=== PATIENT | female | born 1970 | race Caucasian/White ===

== ENCOUNTER 2017-11-17 05:59 | Inpatient (IN) | payer OTHER ==
[~2017-11-17 05:59] MED LIST: Buffered Lidocaine 0.9% SYRIN* 5 ML/SYR SYRINGE INTRADERM ONE
[2017-11-17] MEDS ORDERED: Famotidine IV* 10 MG/ML 2 ML (20 mg) IV ONE (06:00)
[2017-11-17] MEDS ORDERED: Dexamethasone IV* 4 MG/ML 1 ML (4 MG) IV SLOW PU ONE (06:00)
[2017-11-17] MEDS ORDERED: Heparin VIAL(*) 5000 UNITS/ML VIAL (FIVE THOUSAND) ONE (06:06)
[2017-11-17] MEDS ORDERED: Famotidine IV* 10 MG/ML 2 ML (20 mg) ONE (06:06)
[2017-11-17] MEDS ORDERED: Dexamethasone IV* 4 MG/ML 1 ML (4 MG) ONE (06:06)
[2017-11-17] MEDS ORDERED: ceFAZolin 1 GM in Dextrose (*) 1 GM/50 ML BAG IVPB ONE (06:06)
[2017-11-17] MEDS ORDERED: ceFAZolin 2 GM PREMIX (*) 2 GM/50 ML BAG IVPB ONE (06:06)
[2017-11-17] MEDS ORDERED: Midazolam* 1 MG/ML 2 ML VIAL (2 MG) ONE (06:38)
[2017-11-17] MEDS ORDERED: fentaNYL* 50 MCG/ML 5 ML VIAL (250 MCG VIAL) ONE ×2 (06:38→10:38)
[2017-11-17] MEDS ORDERED: Rocuronium* 10 MG/ML VIAL ONE (06:39)
[2017-11-17] MEDS ORDERED: Lidocaine 2% PF * 5 ML VIAL ONE (06:40)
[2017-11-17] MEDS ORDERED: Propofol* 10 MG/ML 20 ML BTL IV PUSH ONE (06:40)
[2017-11-17] MEDS ORDERED: Bupivacaine 0.25% W/EPI* 10 ML SDV ONE (07:04)
[2017-11-17] MEDS ORDERED: Clindamycin 900 MG IVPREMIX(* 900 MG/50 ML SDV IV ONE (07:30)
[2017-11-17] MEDS ORDERED: Naloxone* 0.4 MG/ML 1 ML VIAL IV PRN (08:15)
[2017-11-17] MEDS ORDERED: DiMENhydriNATE IV* 50 MG/ML VIAL IV PUSH PRN (08:15)
[2017-11-17] MEDS ORDERED: fentaNYL* 50 MCG/ML 2 ML VIAL (100 MCG VIAL) IV PRN (08:15)
[2017-11-17] MEDS ORDERED: Acetaminophen IV 1GM/100ML * 1,000 MG/100 ML VIAL IVPB ONE (08:15)
[2017-11-17] MEDS ORDERED: PROCHLORPERAZINE INJ 5 MG/ML 2 ML VIAL ONE (08:18)
[2017-11-17] MEDS ORDERED: EPHEDrine (Pressors)* 50 MG/ML VIAL ONE (08:20)
[2017-11-17] MEDS ORDERED: Succinylcholine* 20 MG/ML 10 ML VIAL ONE (08:38)
[2017-11-17] MEDS ORDERED: Glycopyrrolate IV* 0.2 MG/ML 1 ML VIAL ONE (09:05)
[2017-11-17] MEDS ORDERED: Neostigmine Methylsulfate* 1 MG/ML 10 ML VIAL (1 mg/ml) ONE (09:05)
[2017-11-17] MEDS ORDERED: Ondansetron INJ* 2 MG/ML VIAL IV PRN (10:05)
[2017-11-17] MEDS ORDERED: HYDROcodone/ACET. 7.5/325 LIQ* 15 ML UDC PO PRN (10:05)
[2017-11-17] MEDS ORDERED: HYDROmorphone INJ* 2 MG/ML CARPUJECT SYRINGE IV PRN (10:05)
--- NOTE | 2017-11-17 10:05 | BRIEFOPN ---
Brief Operative Note - Surgery Procedures: Procedures Pre-OP Diagnoses: Clinically severe obesity Post-op Diagnosis: same Procedure: Laparoscopic sleeve gastrectomy Surgeon: Yodit Asst: Ben Anethesia: GETA EBL: 50cc IVF: 1500cc LR Specimen: portion of stomach Drains: none
[2017-11-17] MEDS ORDERED: Albuterol HFA INHALER* 8 gm MDI INH PRN (10:08)
[2017-11-17] MEDS ORDERED: Dextrose 50% Syringe 50 ML* 25 GM/50 ML SYRINGE IV PUSH PRN (10:25)
[2017-11-17] MEDS ORDERED: diPHENhydraMINE IV* 50 MG/ML 1 ml VIAL (BENADRYL) ONE (10:38)
[2017-11-17] MEDS ORDERED: HYDROmorphone INJ* 0.5 MG/0.5 ML SYRINGE ONE (11:41)
[2017-11-17] MEDS ORDERED: HYDROcodone/ACET. 7.5/325 LIQ* 15 ML UDC ONE (11:42)
[2017-11-17] MEDS ORDERED: Morphine INJ* 2 MG/ML 1 ML SYRINGE (TWO MG - NEW SYRINGE VERSION) IV PRN (12:29)
[2017-11-17] MEDS ORDERED: HYDROmorphone INJ* 0.5 MG/0.5 ML SYRINGE IV PRN (12:34)
[2017-11-17] MEDS: Insulin LISPRO* 1 UNITS UNIT SUBCUT SCH ×2 (13:11→18:16)
[2017-11-17] MEDS: Ketorolac INJ* 30 MG/ML 1 ML VIAL IV PRN (17:16)
[2017-11-17] MEDS: Famotidine IV* 10 MG/ML 2 ML (20 mg) IV SLOW PU SCH (21:41)
[2017-11-18] MEDS: Insulin LISPRO* 1 UNITS UNIT SUBCUT SCH ×4 (00:43→17:50)
[2017-11-18] MEDS: Ketorolac INJ* 30 MG/ML 1 ML VIAL IV PRN ×4 (01:00→19:58)
--- NOTE | 2017-11-18 02:08 | OP ---
CC: Dr. Sae Triplett; [facility] * DATE OF OPERATION: 11/17/17 - ROOM #351 DATE OF : 70. SURGEON: Victor Hugo Monsivais M.D. SENIOR RESIDENT CARE DIRECTOR: ANDRAE Chambers. ANESTHESIOLOGIST: Dr. Rip Benitez. ANESTHESIA: General anesthesia. PRE-OP DIAGNOSES: 1. Clinically severe obesity. 2. Obstructive sleep apnea. 3. Impaired fasting glycemia. 4. Gastroesophageal reflux. 5. Hyperlipidemia. POST-OP DIAGNOSES: 1. Clinically severe obesity. 2. Obstructive sleep apnea. 3. Impaired fasting glycemia. 4. Gastroesophageal reflux. 5. Hyperlipidemia. OPERATIVE PROCEDURE: Laparoscopic sleeve gastrectomy. ESTIMATED BLOOD LOSS: 50 mL. SPECIMEN: Portion of stomach. IV FLUIDS: 1500 mL of crystalloid fluid given. DRAINS: None. INDICATIONS: Ms. Mars was identified in the preoperative area. She was marked and case was discussed with her again and a consent signed. DESCRIPTION OF PROCEDURE: She was taken to the operating room, placed on the operating table in supine position. Preoperative antibiotics were given. Sequential devices were placed on bilateral lower extremities. General anesthesia was induced. The patient's abdomen was prepped and draped in standard surgical fashion. A time-out was performed. The folds of the umbilicus were elevated anteriorly and a Veress needle inserted into the abdominal cavity, which was then allowed it to be insufflated to a pressure of 15 mmHg. The patient tolerated the insufflation well. [place] between the xiphoid and umbilicus, a 12-mm trocar was just inserted left of midline. Laparoscope was inserted through this and there was no evidence of injury from the trocar insertion or from the Veress needle, which was then removed. Additional trocars were then placed in the following positions: A 12-mm in the right upper quadrant and two 5-mm in the left upper quadrant. Review of the abdomen showed a large floppy liver extending over the spleen. This appeared intact with mild cystic structures. It did not appear metastatic. Next, the patient was placed in a steep reverse Trendelenburg. A Rudolph retractor was inserted through a subxiphoid incision and the liver was retracted anteriorly to the right. This exposed the gastroesophageal fat pad. This was grasped and retracted to the right lower quadrant. Blunt dissection along with sharp dissection was carried out to expose the left crura. Next, a retrogastric tunnel was made along the greater curvature, 6 cm from the pylorus. We utilized the ligature to take the vasculature of the greater curvature, took posterior attachments in a similar fashion and took this right up to the angle of His. We were able to fully rotate the stomach along its axis. There was no hiatal hernia. Next, the sleeve stomach was fashioned using a 60-mm purple SHAE stapling device with reinforcement strips placing it from the area of the greater curvature closest to the pylorus and extending it through the incisura. A 40-Jordanian bougie had been placed into the distal stomach before firing the stapler. An additional 60 mm stapling device was fired staying close to the bougie until the sleeve stomach was completed. Bougie was then removed without incident. The stomach was placed in an endoscopic retrieval bag and placed at the right upper quadrant. On the last firing prior to firing the stapler, the tip of the stapler did extend into the liver and caused some bleeding. This was minimal and controlled with electrocautery. We did hold pressure for sometime and placed a Surgicel at the site. Hemostasis was excellent and reviewed the staple line showed that the staple line started off more anterior before it became more lateral, but did not show any full corkscrew when the bougie was removed, it did flatten out somewhat better. Next, the stomach in its endoscopic retrieval bag was brought out through the right upper quadrant port site. We did not dilate this port and we brought it out and did enter into the stomach as we removed this in its entirety. We did notice upon the full removal that a temperature probe tubing was in the specimen. This did have staple along one of the mid staplers and transected it. I reviewed this on the back table and it seemed to be at the midportion of the sleeve stomach. Next, we entered back into the abdomen and re-insufflated. We placed Rudolph retractor back into an appropriate position to review the sleeve stomach. Hemostasis was achieved at the small blunt injury at the superior aspect of the left lateral lobe. Next, we identified the portion where the tubing was cut. We then placed stay sutures distal and proximal to this and with scissors we were able to cut the staple line and Bovie over the stomach staying tight to the staple line, so it is not too narrow or planned sleeve stomach. The tubing was then brought in through the opening. It was cut and the anesthesiologist was then able to remove it in its entirety and I removed this tip of portion through a trocar and being careful not to engage with the skin. Next, a 60-mm black load staple with reinforcement strips were utilized. We needed to upsize the midline trocar to a 15. We then placed a silk suture to reapproximate at the side of the opening in the staple line where the tubing was removed with opening laterally. We were able to place the staple line of the black load stapler through the staple line and recreated more narrower, but minimally narrower sleeve stomach. The posterior and anterior portion of the sleeve stomach at the staple line appeared intact. I did not see any injuries. The staple line did ooze and this was controlled with clip work distributor along the much of the staple line. We irrigated and suctioned out the effluent, appeared to be no injury into the stomach. The bleeding was controlled once hemostasis was obtained. The Rudolph retractor was removed and the liver flap back down on the top of the sleeve stomach. Again, it did show more anterior disposition at the distal portion of the stomach staple line and then it extended laterally through the body and fundus. We did place a portion of the Surgicel along the last staple line and then before the abdomen collapse, we closed the 15 mm trocar site at the mid abdomen with an 0 Polysorb suture using Endo-Close device. The abdomen was allowed to collapse. Trocars were removed under direct vision and all skin incisions were reapproximated with 4-0 Monocryl subcuticular sutures followed by Steri-Strips and sterile dressing. The patient tolerated the procedure well , and was transferred to the PACU in stable condition and extubated. [id number]/[facility] #: [id number] [facility]ITAL[facility]
[2017-11-18 05:57] LABS: ABS Basophils 0 10^3/ul (0-0.2); ABS Eosinophils 0.1 10^3/ul (0-0.6); ABS Lymphocytes 0.5 10^3/ul (1.0-4.8); ABS Monocytes 0.6 10^3/ul (0-0.8); ABS Neutrophils 5.1 10^3/ul (1.5-7.7); ABS Nucleated RBC 0 10^3/ul; Eosinophil % 1.5 % (0-6); Hematocrit 34 % (35-47); Hemoglobin 11.9 g/dl (12.0-16.0); Lymphocyte % 8.4 % (25-47); Mean Corpuscular HGB Conc 35 g/dl (31-36); Mean Corpuscular Hemoglobin 31 pg (27-31); Mean Corpuscular Volume 88 fL (80-97); Mean Platelet Volume 7.5 um3 (7.4-10.4); Nucleated Red Blood Cells % 0.1; Platelet Count 173 10^3/ul (150-450); Red Blood Count 3.84 10^6/ul (4.00-5.40); Red Cell Distribution Width 15 % (10.5-15); White Blood Count 6.4 10^3/ul (3.5-10.8)
[2017-11-18] MEDS: Famotidine IV* 10 MG/ML 2 ML (20 mg) IV SLOW PU SCH ×2 (08:16→21:29)
--- NOTE | 2017-11-18 08:41 | PN ---
Progress Note - Progress Note Date of Service: 11/18/17 Note: S: POD #1. No problems reported. Pain controlled. No N/V, SOB. Ambulating. O: Vital Signs - 8 hr 11/18/17 11/18/17 11/18/17 00:45 03:54 07:19 Temperature 99.5 F 98.6 F 98.3 F Pulse Rate 70 76 63 Respiratory 16 16 18 Rate Blood Pressure 100/63 105/52 109/63 (mmHg) O2 Sat by Pulse 96 96 98 Oximetry Intake and Output Last 24 Hours 11/16/17 11/17/17 11/18/17 11/19/17 06:59 06:59 06:59 06:59 Intake Total 3472 980 Output Total 1275 Balance 2197 980 Weight 209 lb Intake: IV Fluids 3472 980 LR 1972 980 Lactated Ringers 1500 Oral 0 Output: Urine 1275 Other: # Bowel Movements 0 Gen: appears comfortable Heart: reg Lungs: clear Abd: lap sites clean and dry; +BS; soft; incisional tenderness only. A: s/p lap sleeve gastrectomy, doing well P: UGI: pending; if ok, start kelly clears; will d/w Dr. Monsivais
--- NOTE | 2017-11-18 09:28 | RAD ---
CPT II Codes: G9500 INDICATION: Patient is status post bariatric surgery. Patient status post sleeve gastrectomy. Approximately 0.8 minutes of fluoroscopy time was used. Fluoroscopic and radiographic examination of the upper GI tract demonstrates normal esophagus. Patient is status post sleeve gastrectomy. No evidence of obstruction is noted. No evidence of extraluminal contrast is noted. IMPRESSION: Postoperative changes with no evidence of extraluminal contrast or obstruction.
[2017-11-18] MEDS: D5W 1/2 NS KCl 20 Meq 1000 ML* 1,000 ML IV SCH ×2 (10:45→17:54)
[2017-11-18] MEDS: Heparin VIAL(*) 5000 UNITS/ML VIAL (FIVE THOUSAND) SUBCUT SCH ×2 (14:09→21:29)
[2017-11-18] MEDS ORDERED: oxyCODONE ORAL.SOLN* 5 MG/5 ML UDC PO PRN ×2 (14:19)
[2017-11-19] MEDS: Insulin LISPRO* 1 UNITS UNIT SUBCUT SCH ×2 (00:12→06:17)
[2017-11-19] MEDS: D5W 1/2 NS KCl 20 Meq 1000 ML* 1,000 ML IV SCH (01:30)
[2017-11-19] MEDS: Ketorolac INJ* 30 MG/ML 1 ML VIAL IV PRN (03:31)
[2017-11-19] MEDS: Heparin VIAL(*) 5000 UNITS/ML VIAL (FIVE THOUSAND) SUBCUT SCH (06:17)
[2017-11-19 07:57] VITALS: BP 121/72
[2017-11-19] MEDS: Famotidine IV* 10 MG/ML 2 ML (20 mg) IV SLOW PU SCH (08:59)
--- NOTE | 2017-11-20 03:33 | DS ---
CC: Dr. Sae Triplett; [facility] * DISCHARGE SUMMARY: DATE OF ADMISSION: 11/17/17 DATE OF DISCHARGE: 11/19/17 HOSPITAL COURSE: Ms. Mars is a 47-year-old female who was worked up as an outpatient with clinically severe obesity, hypoglycemia, obstructive sleep apnea who presented on same day of surgery and was admitted after undergoing a laparoscopic sleeve gastrectomy. Please see operative report for details. The patient's intraoperative course was minimally complicated with stapling across of a temperature probe tubing in the stomach. This was successfully dissected out removed and a new staple line placed and this was discussed with the patient and her questions were answered on postoperative day 1 regarding this intraoperative event. On postoperative day 1, the patient underwent upper GI study, which was within normal limits and the patient was started on liquids. She tolerated these well , but did have some continued abdominal pain with some difficulty with liquids. She stayed another night and by postoperative day 2, was ready for discharge. PHYSICAL EXAM PERFORMED ON DAY OF DISCHARGE: Vital Signs: The patient was afebrile. Vital signs were stable. General: Alert and oriented x3, in no apparent distress. Lungs: Clear. Abdomen: Soft, nondistended, nontender. Skin : Dressings removed. Steri-Strips in placed. No erythema. No ecchymosis. Extremities: Within normal limits. PLAN: I have discharged home. The patient has followup visit at [facility] next week with me. She will continue with her inhalers. We will hold off on her vitamins the next 2 weeks and she has already held her metformin. I discussed this with the patient. She understands. She can contact our office if she should have any additional concerns. [id number]/[facility] #: [id number] [facility]ITALPayton
== END 2017-11-19 11:50 | disposition home or self-care (01) | DRG 621 ==
LOC: AA 05:59 → SSU 12:11
PROVIDERS: ADMIT Surgery; ATTEND Surgery
PROC: 0DB64Z3 Excision of Stomach, Percutaneous Endoscopic Approach, Vertical (ICD-10-PCS; principal; 2017-11-17 07:30)
DX: E66.01 Morbid (severe) obesity due to excess calories (principal); G47.33 Obstructive sleep apnea (adult) (pediatric); E78.2 Mixed hyperlipidemia; E16.2 Hypoglycemia, unspecified; K21.9 Gastro-esophageal reflux disease without esophagitis; J45.990 Exercise induced bronchospasm; Z87.442 Personal history of urinary calculi; Z82.3 Family history of stroke; Z90.711 Acquired absence of uterus with remaining cervical stump; Z90.49 Acquired absence of other specified parts of digestive tract; Z98.51 Tubal ligation status; Z82.5 Family history of asthma and other chronic lower respiratory diseases; Z72.89 Other problems related to lifestyle; Z87.891 Personal history of nicotine dependence; Z68.37 Body mass index [BMI] 37.0-37.9, adult; Z88.1 Allergy status to other antibiotic agents; Z91.013 Allergy to seafood; Z88.5 Allergy status to narcotic agent
CPT/HCPCS: 36415; 43775; 74246; 85025; 88307; A9270-GY; J0330; J0690; J0780; J1100; J1170; J1200; J1644; J1885; J2250; J2704; J2710; J3010